=== PATIENT | female | born 1970 | race Caucasian/White ===

== ENCOUNTER 2016-09-21 07:26 | Emergency (ER) | payer OTHER ==
--- NOTE | 2016-09-21 07:33 | UC ---
Throat Pain/Nasal Scott HPI - HPI Summary HPI Summary: 46 YEAR OLD FEMALE PRESENTS WITH COMPLAINS OF SINUSITIS AND EAR PAIN. - History of Current Complaint Stated Complaint: SINUS,EAR PAIN,FEVER Time Seen by Provider: 09/21/16 07:31 Hx Last Menstrual Period: CURRENT - Allergies/Home Medications Allergies/Adverse Reactions: Allergies Allergy/AdvReac Type Severity Reaction Status Date / Time No Known Allergies Allergy Verified 09/21/16 07:35 PMH/Surg Hx/FS Hx/Imm Hx - Surgical History Surgical History: Yes Surgery Procedure, Year, and Place: WISDOM TEETH EXTRACTIONS - Family History Known Family History: Positive: Unknown, Hypertension - Social History Alcohol Use: Daily Alcohol Amount: glass of wine with dinner Substance Use Type: None Smoking Status (MU): Current Some Day Smoker Type: Cigarettes Amount Used/How Often: COUPLE TIMES A YR Length of Time of Smoking/Using Tobacco: 30 YRS - Immunization History Most Recent Influenza Vaccination: none Review of Systems Constitutional: Negative Skin: Negative Eyes: Negative ENT: Sore Throat, Ear Ache, Nasal Discharge, Sinus Congestion, Sinus Pain/ Tenderness Respiratory: Negative Cardiovascular: Negative Gastrointestinal: Negative Genitourinary: Negative Motor: Negative Neurovascular: Negative Musculoskeletal: Negative Neurological: Negative Psychological: Negative All Other Systems Reviewed And Are Negative: Yes Physical Exam Triage Information Reviewed: Yes Eye Exam: Normal ENT: Positive: Pharynx normal, Pharyngeal erythema, Nasal congestion Dental Exam: Normal Neck exam: Normal Neck: Positive: 1 Respiratory Exam: Normal Cardiovascular Exam: Normal Abdominal Exam: Normal Musculoskeletal Exam: Normal Neurological Exam: Normal Psychological Exam: Normal Skin Exam: Normal Throat Pain/Nasal Course/Dx - Differential Dx/Diagnosis Provider Diagnoses: SINUSITIS Discharge - Discharge Plan Condition: Stable Disposition: HOME Prescriptions: Amoxicillin/Clavulanate TAB* [Augmentin TAB 875*] 875 mg PO BID #20 tab Methylprednisolone [Medrol Dosepak 4 MG*] 4 mg PO .SEE CORETTA INSTRUCTION #21 tab Patient Education Materials: Sinusitis (ED), Earache (ED) Referrals: Non Staff,Doctor [Medical Doctor] - If Needed
[2016-09-21 07:35] VITALS: BP 128/75
== END 2016-09-21 07:48 | disposition home or self-care (01) ==
LOC: UCCORT 07:26
DX: J32.9 Chronic sinusitis, unspecified (principal)
CPT/HCPCS: 99212; G0463

== ENCOUNTER 2016-11-29 17:49 | Emergency (ER) | payer OTHER ==
[2016-11-29 19:15] VITALS: BP 127/68
--- NOTE | 2016-11-29 19:55 | UC ---
FLU HPI - HPI Summary HPI Summary: 46 y/o female with 2 day h/o sinus pressure, fever, chills at night. Patient deneis recent illness, no recent ABX use. Syptoms started 2 days ago, worst last night, improved throughout day however still with severe b/l sinus pressure , flushed feeling, temperature overnight, chills. denies cough, chest pain, shortness of breath. - History of Current Complaint Chief Complaint: UCGeneralIllness Stated Complaint: RESPIRATORY Time Seen by Provider: 11/29/16 19:54 Hx Obtained From: Patient Hx Last Menstrual Period: last week Onset/Duration: Sudden Onset, Lasting Days Severity Currently: Moderate Severity Initially: Moderate - Allergy/Home Medications Allergies/Adverse Reactions: Allergies Allergy/AdvReac Type Severity Reaction Status Date / Time No Known Allergies Allergy Verified 09/21/16 07:35 Home Medications: Home Medications Pseudoephedrine TAB* [Sudafed TAB*] 30 mg PO TID PRN 11/29/16 [History Confirmed 11/29/16] PMH/Surg Hx/FS Hx/Imm Hx Previously Healthy: Yes - Surgical History Surgical History: Yes Surgery Procedure, Year, and Place: WISDOM TEETH EXTRACTIONS - Family History Known Family History: Positive: Unknown, Hypertension - Social History Alcohol Use: Occasionally Alcohol Amount: glass of wine with dinner Substance Use Type: None Smoking Status (MU): Current Some Day Smoker Type: Cigarettes Amount Used/How Often: COUPLE TIMES A YR Length of Time of Smoking/Using Tobacco: 30 YRS - Immunization History Most Recent Influenza Vaccination: none Review of Systems Constitutional: Fever, Chills, Fatigue ENT: Sinus Congestion, Sinus Pain/Tenderness Is Patient Immunocompromised?: No All Other Systems Reviewed And Are Negative: Yes Physical Exam Triage Information Reviewed: Yes Appearance: No Pain Distress, Well-Nourished, Ill-Appearing - mild Vital Signs: Initial Vital Signs Temp 99.0 F 11/29/16 19:11 Pulse 87 11/29/16 19:11 Resp 16 11/29/16 19:11 BP 127/68 11/29/16 19:11 Pulse Ox 99 11/29/16 19:11 Vital Signs Reviewed: Yes Eyes: Positive: Conjunctiva Inflamed - minimally ENT: Positive: Pharynx normal, TM dull - fluid levels b/l Neck: Positive: Supple, Nontender, Enlarged Nodes @ - submandibular Respiratory: Positive: Lungs clear, Normal breath sounds, No respiratory distress, No accessory muscle use Cardiovascular: Positive: RRR, No Murmur, Pulses Normal Psychological Exam: Normal - Additional Comments + tenderness over frontal and max sinuses with percussion. Flu Course/Dx - Course Course Of Treatment: sinusitis, abx given, follow up if no improvement within 48 hours or if symptoms worsesn. OTCs for associated symptoms, fever - Differential Dx/Diagnosis Differential Diagnosis/HQI/PQRI: RSV, Upper Respiratory Infection Provider Diagnoses: Sinusitis Discharge - Discharge Plan Condition: Good Disposition: HOME Prescriptions: Azithromyxin CORETTA (NF) [Z-Coretta (Zithromax) 250 mg tabs #6] 250 mg PO .ZPAK INSTRUCTIONS #6 tab Patient Education Materials: Sinusitis (ED) Forms: *Work Release Referrals: No Primary Care Phys,NOPCP [Primary Care Provider] - Additional Instructions: - Take antibiotics as directed - Increase fluid intake - tylenol/ motrin for pain/ fever
[2016-11-29] MEDS ORDERED: Azithromyxin PAK (NF) 250 MG TAB PO SCH (21:00)
== END 2016-11-29 20:20 | disposition home or self-care (01) ==
LOC: UCCORT 17:49
DX: J32.9 Chronic sinusitis, unspecified (principal)
CPT/HCPCS: 99212; G0463

== ENCOUNTER 2018-08-11 16:36 | Emergency (ER) | payer OTHER ==
[2018-08-11 17:01] VITALS: BP 148/84
--- NOTE | 2018-08-11 17:06 | UC ---
Throat Pain/Nasal Scott HPI - HPI Summary HPI Summary: Ill with head and sinus congestion over the past week, worse today. - History of Current Complaint Chief Complaint: UCRespiratory Stated Complaint: EARS/SINUSES Time Seen by Provider: 08/11/18 16:39 Hx Obtained From: Patient Hx Last Menstrual Period: 08/01/18 ?: No Onset/Duration: Gradual Onset Severity: Mild Pain Intensity: 4 Cough: None Associated Signs & Symptoms: Positive: Sinus Discomfort, Nasal Discharge - Allergies/Home Medications Allergies/Adverse Reactions: Allergies Allergy/AdvReac Type Severity Reaction Status Date / Time No Known Allergies Allergy Verified 08/11/18 16:51 Home Medications: Home Medications Minocycline HCl [Minocin] 50 mg PO DAILY 08/11/18 [History Confirmed 08/11/18] PMH/Surg Hx/FS Hx/Imm Hx Previously Healthy: Yes - Surgical History Surgical History: Yes Surgery Procedure, Year, and Place: WISDOM TEETH EXTRACTIONS - Family History Known Family History: Positive: Unknown, Hypertension - Social History Alcohol Use: Occasionally Alcohol Amount: glass of wine with dinner Substance Use Type: None Smoking Status (MU): Current Some Day Smoker Type: Cigarettes Amount Used/How Often: COUPLE TIMES A YR Length of Time of Smoking/Using Tobacco: 30 YRS - Immunization History Most Recent Influenza Vaccination: none Review of Systems All Other Systems Reviewed And Are Negative: Yes Constitutional: Positive: Fever, Chills ENT: Positive: Sore Throat, Ear Ache - Left earache, Nasal Discharge, Sinus Congestion, Sinus Pain/Tenderness Is Patient Immunocompromised?: No Physical Exam Triage Information Reviewed: Yes Appearance: Well-Appearing, No Pain Distress, Well-Nourished Vital Signs: Initial Vital Signs Temp 98.4 F 08/11/18 16:53 Pulse 71 08/11/18 16:53 Resp 16 08/11/18 16:53 BP 148/84 08/11/18 16:53 Pulse Ox 100 08/11/18 16:53 Vital Signs Reviewed: Yes Eyes: Positive: Conjunctiva Clear ENT: Positive: Pharynx normal, Nasal congestion, Nasal drainage, TM red - Left TM with erythema and poor landmarks and light reflex, left turbinates red and swollen, Sinus tenderness - Left maxiallary sinus tenderness on palpation, Uvula midline Neck: Positive: Supple, Nontender, No Lymphadenopathy Throat Pain/Nasal Course/Dx - Course Course Of Treatment: Pt comfortable here. Will treat with Amoxicllin 875 mg p.o. BID for 10 days for sinusitis and left OM. - Differential Dx/Diagnosis Provider Diagnosis: Sinusitis, Left otitis media Discharge - Sign-Out/Discharge Documenting (check all that apply): Patient Departure All imaging exams completed and their final reports reviewed: No Studies - Discharge Plan Condition: Fair Disposition: HOME Prescriptions: Amoxicillin PO (*) [Amoxicillin 875 MG (*)] 875 mg PO BID 10 Days #20 tab Patient Education Materials: Sinusitis (ED), Ear Infection (ED) Referrals: No Primary Care Phys,NOPCP [Primary Care Provider] - [facility] [Outside] Additional Instructions: Increase fluids, Follow up with your primary care provider in 4-5 days if no improvement. - Billing Disposition and Condition Condition: FAIR Disposition: Home
== END 2018-08-11 17:16 | disposition home or self-care (01) ==
LOC: UCCORT 16:36
DX: J32.9 Chronic sinusitis, unspecified (principal); H66.92 Otitis media, unspecified, left ear; F17.210 Nicotine dependence, cigarettes, uncomplicated
CPT/HCPCS: 99212; G0463